=== PATIENT | male | born 1965 | race Caucasian/White ===

== ENCOUNTER 2017-11-18 01:14 | Emergency (ER) | payer OTHER ==
[2017-11-18] MEDS ORDERED: Ketorolac 30 MG/ML SDV IVPUSH ONE (01:24)
[2017-11-18] MEDS ORDERED: Ondansetron 4 MG/2 ML SDV IVPUSH ONE (01:24)
--- NOTE | 2017-11-18 01:24 | EDM.PDOC ---
ED HPI GENERAL MEDICAL PROBLEM - General Stated Complaint: DIARRHEA, STOMACH CRAMPS Time Seen by Provider: 11/18/17 02:00 - History of Present Illness INITIAL COMMENTS - FREE TEXT/NARRATIVE: HISTORY AND PHYSICAL: History of present illness: Patient's 51-year-old white malewith past medical history presents with a concern of vomiting diarrhea over the last several days this was worse tonight he states he's felt chilled he denies fever been no trauma he denies prior abdominal surgery he denies urinary symptoms. Review of systems: As per history of present illness and below otherwise all systems reviewed and negative. Past medical history: As per history of present illness and as reviewed below otherwise noncontributory. Surgical history: As per history of present illness and as reviewed below otherwise noncontributory. Social history: No reported history of drug or alcohol abuse. Family history: As per history of present illness and as reviewed below otherwise noncontributory. Physical exam: HEENT: Atraumatic, normocephalic, pupils reactive, negative for conjunctival pallor or scleral icterus, mucous membranes dry, throat clear, neck supple, nontender, trachea midline. Lungs: Clear to auscultation, breath sounds equal bilaterally, chest nontender. Heart: S1S2, regular, negative for clicks, rubs, or JVD. Abdomen: Soft, nondistended, nontender. Negative for masses or hepatosplenomegaly. Negative for costovertebral tenderness. Pelvis: Stable nontender. Genitourinary: Deferred. Rectal: Deferred. Extremities: Atraumatic, negative for cords or calf pain. Neurovascular unremarkable. Neuro: Awake, alert, oriented. Cranial nerves II through XII unremarkable. Cerebellum unremarkable. Motor and sensory unremarkable throughout. Exam nonfocal. Diagnostics: CBC CMP and lipase UA stool for C&S O&P influenza screen Therapeutics: Saline 1 L bolus Zofran 4 mg IV Toradol 30 mg IV Bentyl 20 mg IM Impression: #1 gastroenteritis Definitive disposition and diagnosis as appropriate pending reevaluation and review of above. abdominal Pain Score (Numeric/FACES): 7 - Related Data Allergies Allergy/AdvReac Type Severity Reaction Status Date / Time Penicillins Allergy Other Verified 11/18/17 01:21 Home Meds: Home Meds . [No Known Home Meds] 11/18/17 [History] ED ROS GENERAL - Review of Systems Review Of Systems: ROS reveals no pertinent complaints other than HPI. ED EXAM, GENERAL - Physical Exam Exam: See Below (See dictation) Course - Vital Signs Last Recorded V/S: Last Vital Signs Temp 37.2 C 11/18/17 04:28 Pulse 79 11/18/17 04:28 Resp 18 11/18/17 04:28 BP 100/64 11/18/17 04:28 Pulse Ox 97 11/18/17 04:28 - Orders/Labs/Meds Orders: Active Orders 24 hr Category Date Time Status CULTURE STOOL + CAMPY+SHIGATOX [RM] Stat Lab 11/18/17 01:45 Ordered H PYLORI STOOL ANTIGEN [MREF] Stat Lab 11/18/17 01:45 Ordered INFLUENZA A+B AG SCREEN [RM] Stat Lab 11/18/17 02:16 Ordered UA W/MICROSCOPIC [URIN] Stat Lab 11/18/17 01:45 Ordered Labs: Laboratory Tests 11/18/17 11/18/17 11/18/17 Range/Units 01:45 02:25 03:20 WBC 6.78 (4.0-11.0) K/uL RBC 5.61 (4.50-5.90) M/uL Hgb 17.2 H (13.0-17.0) g/dL Hct 47.6 (38.0-50.0) % MCV 84.8 (80.0-98.0) fL MCH 30.7 (27.0-32.0) pg MCHC 36.1 (31.0-37.0) g/dL RDW Std Deviation 40.1 (28.0-62.0) fl RDW Coeff of [place] 13 (11.0-15.0) % Plt Count 206 (150-400) K/uL MPV 10.30 (7.40-12.00) fL Add Manual Diff YES Neutrophils % (Manual) 73 (48.0-80.0) % Band Neutrophils % 3 % Lymphocytes % (Manual) 15 L (16.0-40.0) % Monocytes % (Manual) 8 (0.0-15.0) % Eosinophils % (Manual) 1 (0.0-7.0) % Nucleated RBC % 0.0 /100WBC Absolute Seg Neuts 4.9 (1.4-5.7) Band Neutrophils # 0.2 Lymphocytes # (Manual) 1.0 (0.6-2.4) Monocytes # (Manual) 0.5 (0.0-0.8) Eosinophils # (Manual) 0.1 (0.0-0.7) Nucleated RBCs # 0 K/uL Sodium 137 (136-148) mmol/L Potassium 3.5 (3.5-5.1) mmol/L Chloride 107 (98-107) mmol/L Carbon Dioxide 21.7 (21.0-32.0) mmol/L BUN 8 (7.0-18.0) mg/dL Creatinine 0.9 (0.8-1.3) mg/dL Est Cr Clr Drug Dosing 95.00 mL/min Estimated GFR (MDRD) > 60.0 ml/min Glucose 100 (74-106) mg/dL Calcium 7.4 L (8.5-10.1) mg/dL Total Bilirubin 0.3 (0.2-1.0) mg/dL AST 31 (15-37) IU/L ALT 41 (14-63) IU/L Alkaline Phosphatase 60 (46-116) U/L Total Protein 6.2 L (6.4-8.2) g/dL Albumin 3.0 L (3.4-5.0) g/dL Globulin 3.2 (2.0-3.5) g/dL Albumin/Globulin Ratio 0.9 L (1.3-2.8) Urine Color YELLOW Urine Appearance CLEAR Urine pH 6.0 (5.0-8.0) Ur Specific [place] <= 1.005 (1.001-1.035) Urine Protein NEGATIVE (NEGATIVE) mg/dL Urine Glucose (UA) NEGATIVE (NEGATIVE) mg/dL Urine Ketones NEGATIVE (NEGATIVE) mg/dL Urine Occult Blood TRACE-INTACT (NEGATIVE) Urine Nitrite NEGATIVE (NEGATIVE) Urine Bilirubin NEGATIVE (NEGATIVE) Urine Urobilinogen 0.2 (<2.0) EU/dL Ur Leukocyte Esterase NEGATIVE (NEGATIVE) Urine RBC 0-2 (0-2/HPF) Urine WBC 0-1 (0-5/HPF) Ur Epithelial Cells RARE (NONE-FEW) Urine Bacteria RARE (NEGATIVE) Urine Mucus FEW (NONE-MOD) Meds: Medications Discontinued Medications Generic Name Dose Route Start Last Admin Trade Name Freq PRN Reason Stop Dose Admin Sodium Chloride 1,000 mls @ 999 mls/hr 11/18/17 01:30 11/18/17 02:14 Normal Saline IV 999 mls/hr ASDIRECTED MARLENA Administration Ketorolac Tromethamine 30 mg 11/18/17 01:24 11/18/17 02:14 Toradol IVPUSH 11/18/17 01:25 30 mg ONETIME ONE Administration Ondansetron HCl 4 mg 11/18/17 01:24 11/18/17 02:14 Zofran IVPUSH 11/18/17 01:25 4 mg ONETIME ONE Administration Departure - Departure Time of Disposition: 21:34 Disposition: Home, Self-Care 01 Clinical Impression: Gastroenteritis - Discharge Information Instructions: Viral Gastroenteritis, Adult, [id number] Referrals: PCP,None [Primary Care Provider] - Forms: ED Department Discharge Care Plan Goals: Follow up with primary care provider, keep rested, increase fluids and return to ED if symptoms persist of worsen - My Orders Last 24 Hours: My Active Orders 11/18/17 01:45 CULTURE STOOL + CAMPY+SHIGATOX [RM] Stat H PYLORI STOOL ANTIGEN [MREF] Stat UA W/MICROSCOPIC [URIN] Stat 11/18/17 02:16 INFLUENZA A+B AG SCREEN [RM] Stat - Assessment/Plan Last 24 Hours: My Active Orders 11/18/17 01:45 CULTURE STOOL + CAMPY+SHIGATOX [RM] Stat H PYLORI STOOL ANTIGEN [MREF] Stat UA W/MICROSCOPIC [URIN] Stat 11/18/17 02:16 INFLUENZA A+B AG SCREEN [RM] Stat
[2017-11-18] MEDS ORDERED: Sodium Chloride 0.9% 1,000 ML IV SCH (01:30)
[2017-11-18 03:50] LABS: CHLORIDE,CL 107 mmol/L (98-107); SODIUM,NA 137 mmol/L (136-148)
== END 2017-11-18 04:30 | disposition home or self-care (01) ==
LOC: MW.ED 01:14
DX: K52.9 Noninfective gastroenteritis and colitis, unspecified (principal); Z88.0 Allergy status to penicillin
CPT/HCPCS: 36415; 80053; 81001; 85025; 87046; 87338; 87804; 87899; 96361; 96374; 96375; 99284; J1885; J2405; J7040; 99283